=== PATIENT | male | born 1985 | race Caucasian/White ===

== ENCOUNTER 2018-01-11 08:50 | Emergency (ER) | payer BC ==
[~2018-01-11] VITALS: Ht 177.8 cm; Wt 95.3 kg
[2018-01-11 09:04] VITALS: Ht 177.8 cm; Wt 95.3 kg
[2018-01-11 11:00] VITALS: BP 110/79
== END 2018-01-11 11:00 | disposition home or self-care (01) ==
LOC: ED 08:50
DX: M54.5 Low back pain (principal); M25.521 Pain in right elbow; V49.88XA Car occupant (driver) (passenger) injured in other specified transport accidents, initial encounter; Y93.89 Activity, other specified; Y92.89 Other specified places as the place of occurrence of the external cause; Y99.8 Other external cause status

== ENCOUNTER 2020-03-03 03:33 | Emergency (ER) | payer BC ==
[~2020-03-03] VITALS: Ht 172.7 cm; Wt 93.9 kg
[2020-03-03 03:42] VITALS: BP 117/64; Ht 172.7 cm; Wt 93.9 kg
== END 2020-03-03 07:30 | disposition left against medical advice (07) ==
LOC: ED 03:33
DX: Z53.21 Procedure and treatment not carried out due to patient leaving prior to being seen by health care provider (principal)